=== PATIENT | male | born 1960 | race Caucasian/White ===

== ENCOUNTER → 2018-02-20 | Outpatient (CLI) | payer BC | LOC: LAB SHORT 08:09 → PLD 08:09 | DX: L30.8 Other specified dermatitis (principal) | CPT/HCPCS: 88305; 88312 ==

== ENCOUNTER → 2022-03-24 | Outpatient (CLI) | payer BC ==
[~2022-03-24] MED LIST: AMOCLA875 PO; AZIT250 PO; Crestor20 MG PO; HYDCHL25 PO; Humalog Mi100 UNIT/4; INSDET100; METF500C PO; METO100ER PO; ZESTRIL40 MG PO
[2022-03-24 13:45] LABS: Stool Occult Bld Immuno 1 Negative (NEGATIVE)
== END | disposition home or self-care (01) ==
LOC: LAB 07:00 → LAB SHORT 07:00
PROVIDERS: Family Medicine
DX: D64.9 Anemia, unspecified (principal)
CPT/HCPCS: 82274

== ENCOUNTER 2022-12-14 07:21 | Day surgery (SDC) | payer BC ==
[~2022-12-14] VITALS: Ht 172.7 cm; Wt 114.3 kg
[~2022-12-14 07:21] MED LIST changes: +AMLO10 PO; +Cyclobenzaprine5 MG PO; -INSDET100; +LEVEMIR100 UNIT/1 SC; +NOVOLOG100 UNIT/3 SC; +Norco 5-325 Ta1 EACH PO
--- NOTE | 2022-12-14 07:58 | NUR ---
Ambulatory in Day Surgery. Pre-Op teaching done. Pt verbalizes understanding. Patient confirms NPO status and agrees with scheduled surgery. Patient States Post-Procedure ride home has been arranged. Patient states colon prep results clear. Lungs clear T/O to Auscultation.
[2022-12-14] MEDS ORDERED: OZEMPIC0.25 MG/0. SQ (08:21)
[2022-12-14] MEDS ORDERED: ESCI10 PO (08:21)
--- NOTE | 2022-12-14 09:12 | NUR ---
12/14/22 0912 Curtis Silveira History, Chart, Medications and Allergies reviewed before start of procedure. MONITOR INTACT WITH CONTINUOUS PULSE OXIMETRY, CONTINUOUS END TITAL CO2, AND INTERMITTENT BLOOD PRESSURE. 3-LEAD EKG REVIEWED WITH PHYSICIAN PRIOR TO START OF PROCEDURE. O2 VIA POM INTACT THROUGHOUT SEDATION/PROCEDURE.
== END 2022-12-14 23:02 | disposition home or self-care (01) ==
LOC: ORSCMMR 07:21 → ORD 08:45 → ORSCMMR 23:02
PROVIDERS: Internal Medicine Gastroenterology
PROC: 0DJD8ZZ Inspection of Lower Intestinal Tract, Via Natural or Artificial Opening Endoscopic (ICD-10-PCS; principal; 2022-12-14 08:45)
DX: Z12.11 Encounter for screening for malignant neoplasm of colon (principal); Z86.010 Personal history of colon polyps; E11.9 Type 2 diabetes mellitus without complications; I10 Essential (primary) hypertension; G47.33 Obstructive sleep apnea (adult) (pediatric); E66.9 Obesity, unspecified; Z68.38 Body mass index [BMI] 38.0-38.9, adult; Z79.84 Long term (current) use of oral hypoglycemic drugs; Z79.4 Long term (current) use of insulin; Z79.899 Other long term (current) drug therapy
CPT/HCPCS: 82947; J2704; J7120